=== PATIENT | male | born 1990 | race American Indian/Alaskan Native ===

== ENCOUNTER 2019-05-27 09:47 | Emergency (ER) | payer OTHER ==
[2019-05-27 09:55] VITALS: BP 146/94
--- NOTE | 2019-05-27 11:30 | Emergency Department Report ---
ED General Adult HPI - General Chief complaint: Extremity Injury, Lower Stated complaint: RT LEG PAIN Time Seen by Provider: 05/27/19 10:35 Source: patient Mode of arrival: Ambulatory Limitations: No Limitations - History of Present Illness Initial comments: 28-year-old male presents with right knee pain 1 week. Patient states about a week ago he accidentally slild sledgehammer onto his knee. Patient states that he had a mild abrasion from an injury about a week ago which is not resolved. Patient states intermittently he gets knee pain. He denies swelling to the knee, difficult to walking Radiation: non-radiation Severity scale (0 -10): 5 Quality: aching Consistency: constant Improves with: none Worsens with: none Associated Symptoms: denies other symptoms Treatments Prior to Arrival: none - Related Data Previous Rx's Medication Instructions Recorded Last Taken Type Cyclobenzaprine [Flexeril] 10 mg PO QHS PRN #10 tablet 05/27/19 Unknown Rx Ibuprofen [Motrin] 600 mg PO Q8H PRN #30 tablet 05/27/19 Unknown Rx Allergies Allergy/AdvReac Type Severity Reaction Status Date / Time No Known Allergies Allergy Unverified 05/27/19 09:50 ED Review of Systems ROS: Stated complaint: RT LEG PAIN Other details as noted in HPI Comment: All other systems reviewed and negative ED Past Medical Hx - Past Medical History Previous Medical History?: No - Surgical History Past Surgical History?: No - Social History Smoking Status: Never Smoker Substance Use Type: None - Medications Home Medications: Home Medications Medication Instructions Recorded Confirmed Last Taken Type Cyclobenzaprine [Flexeril] 10 mg PO QHS PRN #10 tablet 05/27/19 Unknown Rx Ibuprofen [Motrin] 600 mg PO Q8H PRN #30 tablet 05/27/19 Unknown Rx ED Physical Exam - General Limitations: No Limitations General appearance: alert, in no apparent distress - Head Head exam: Present: atraumatic, normocephalic - Eye Eye exam: Present: normal appearance - ENT ENT exam: Present: mucous membranes moist - Neck Neck exam: Present: normal inspection - Respiratory Respiratory exam: Present: normal lung sounds bilaterally. Absent: respiratory distress - Cardiovascular Cardiovascular Exam: Present: regular rate, normal rhythm. Absent: systolic murmur, diastolic murmur, rubs, gallop - GI/Abdominal GI/Abdominal exam: Present: soft, normal bowel sounds - Rectal Rectal exam: Present: deferred - Extremities Exam Extremities exam: Present: normal inspection, full ROM, normal capillary refill. Absent: tenderness, joint swelling, calf tenderness - Back Exam Back exam: Present: normal inspection - Neurological Exam Neurological exam: Present: alert, oriented X3 - Psychiatric Psychiatric exam: Present: normal affect, normal mood - Skin Skin exam: Present: warm, dry, intact, normal color. Absent: rash ED Course Vital Signs 05/27/19 05/27/19 09:54 10:24 Temperature 98.3 F 98.3 F Pulse Rate 90 90 Respiratory 18 18 Rate Blood Pressure 146/94 Blood Pressure 146/94 [Right] O2 Sat by Pulse 100 100 Oximetry ED Medical Decision Making - Medical Decision Making 28-year-old male presents with knee pain for the past one week. Abrasion is healed, noninfected. Patient is able to ambulate his knee without any problems. Right knee shows no swelling redness or injury. Discussed with patient to avoid shyness activities for the next couple of days. Discussed heat application 3 times a day. Vital signs are normal patient is in no acute distress. Critical care attestation.: If time is entered above; I have spent that time in minutes in the direct care of this critically ill patient, excluding procedure time. ED Disposition Clinical Impression: Right knee pain Disposition: DC-01 TO HOME OR SELFCARE Is pt being admited?: No Does the pt Need Aspirin: No Condition: Stable Instructions: Arthralgia (ED) Additional Instructions: Make sure to follow up with the primary care physician as discussed. Take all your medications as you've been prescribed. If you have any worsening symptoms or develop new symptoms please return to ED immediately. Prescriptions: Cyclobenzaprine [Flexeril] 10 mg PO QHS PRN #10 tablet PRN Reason: Muscle Spasm Ibuprofen [Motrin] 600 mg PO Q8H PRN #30 tablet PRN Reason: Pain Referrals: PRIMARY CARE,MD [Primary Care Provider] - 3-5 Days [facility] [Outside] - 3-5 Days [facility] [Outside] - 3-5 Days Forms: Work/School Release Form(ED) Time of Disposition: 11:34
== END 2019-05-27 11:46 | disposition home or self-care (01) ==
LOC: ED 09:47
DX: M25.561 Pain in right knee (principal)
CPT/HCPCS: 99282

== ENCOUNTER 2019-06-17 18:24 | Emergency (ER) | payer OTHER ==
[2019-06-17 19:25] VITALS: BP 151/92
--- NOTE | 2019-06-17 19:25 | Emergency Department Report ---
Blank Doc - Documentation Documentation: 28-year-old male that presents with several boils. This initial assessment/diagnostic orders/clinical plan/treatment(s) is/are subject to change based on patient's health status, clinical progression and re- assessment by fellow clinical providers in the ED. Further treatment and workup at subsequent clinical providers discretion. Patient/guardians urged not to elope from the ED as their condition may be serious if not clinically assessed and managed. Initial orders include: 1- Patient sent to [facility] for further evaluation and treatment 2- I/D
--- NOTE | 2019-06-17 22:43 | Emergency Department Report ---
ED General Adult HPI - General Chief complaint: Skin/Abscess/Foreign Body Stated complaint: RT SIDE FACE/BACK BOIL PAIN Time Seen by Provider: 06/17/19 19:25 Source: patient Mode of arrival: Ambulatory Limitations: No Limitations - History of Present Illness Initial comments: Patient is a 28-year-old [place] male who over the last 3-4 days has develops some lesions on the face and groin and. Patient has some swelling to the right jaw and 3 distinct areas on her groin is swollen. There is mild pain with palpation. Patient states is throbbing sensation is 6 out of 10 in severity. Denies any fevers chills nausea vomiting. - Related Data Previous Rx's Medication Instructions Recorded Last Taken Type Cyclobenzaprine [Flexeril] 10 mg PO QHS PRN #10 tablet 05/27/19 Unknown Rx Ibuprofen [Motrin] 600 mg PO Q8H PRN #30 tablet 05/27/19 Unknown Rx Clindamycin [Clindamycin CAP] 300 mg PO Q8H #21 cap 06/17/19 Unknown Rx Ibuprofen [Motrin 800 MG tab] 800 mg PO Q8HR PRN #10 tablet 06/17/19 Unknown Rx Mupirocin [Bactroban 2%] 1 applic NS BID #1 tube 06/17/19 Unknown Rx Allergies Allergy/AdvReac Type Severity Reaction Status Date / Time No Known Allergies Allergy Unverified 05/27/19 09:50 ED Review of Systems ROS: Stated complaint: RT SIDE FACE/BACK BOIL PAIN Other details as noted in HPI Comment: All other systems reviewed and negative ED Past Medical Hx - Past Medical History Previous Medical History?: No - Surgical History Past Surgical History?: No - Social History Smoking Status: Current Some Day Smoker - Medications Home Medications: Home Medications Medication Instructions Recorded Confirmed Last Taken Type Cyclobenzaprine [Flexeril] 10 mg PO QHS PRN #10 tablet 05/27/19 Unknown Rx Ibuprofen [Motrin] 600 mg PO Q8H PRN #30 tablet 05/27/19 Unknown Rx Clindamycin [Clindamycin CAP] 300 mg PO Q8H #21 cap 06/17/19 Unknown Rx Ibuprofen [Motrin 800 MG tab] 800 mg PO Q8HR PRN #10 tablet 06/17/19 Unknown Rx Mupirocin [Bactroban 2%] 1 applic NS BID #1 tube 06/17/19 Unknown Rx ED Physical Exam - General Limitations: No Limitations General appearance: alert, in no apparent distress - Head Head exam: Present: atraumatic, normocephalic, other (patient with a small area of folliculitis at the angle of the right jaw) - Eye Eye exam: Present: normal appearance - ENT ENT exam: Present: mucous membranes moist - Respiratory Respiratory exam: Absent: respiratory distress - GI/Abdominal GI/Abdominal exam: Absent: distended, tenderness - exam: Present: other (2 small areas of folliculitis to the groin) ED Course Vital Signs 06/17/19 18:29 Temperature 98.3 F Pulse Rate 102 H Respiratory 18 Rate Blood Pressure 151/92 O2 Sat by Pulse 99 Oximetry ED Medical Decision Making - Medical Decision Making Because of the location of the patient's symptoms and the very areas that he's affected patient likely has colony of MRSA. Patient be started on clindamycin and can continue with warm compresses. Patient also given Bactroban as a nasal ointment Critical care attestation.: If time is entered above; I have spent that time in minutes in the direct care of this critically ill patient, excluding procedure time. ED Disposition Clinical Impression: Folliculitis, MRSA (methicillin resistant Staphylococcus aureus) Disposition: DC-01 TO HOME OR SELFCARE Is pt being admited?: No Does the pt Need Aspirin: No Condition: Stable Instructions: Folliculitis (ED), Methicillin Resistant Staphylococcus Aureus (ED) Referrals: NHI HANSON MD [Referring] - 3-5 Days Time of Disposition: 22:41
== END 2019-06-17 23:03 | disposition home or self-care (01) ==
LOC: ED 18:24
DX: A49.02 Methicillin resistant Staphylococcus aureus infection, unspecified site (principal); L73.9 Follicular disorder, unspecified; F17.200 Nicotine dependence, unspecified, uncomplicated; Z79.899 Other long term (current) drug therapy

== ENCOUNTER 2020-05-28 13:04 | Emergency (ER) | payer SELFPAY ==
[2020-05-28 13:12] VITALS: BP 125/83
--- NOTE | 2020-05-28 14:07 | Emergency Department Report ---
ED ENT HPI - General Chief complaint: Earache Stated complaint: LT EAR PAIN Time Seen by Provider: 05/28/20 13:57 Source: patient Mode of arrival: Ambulatory Limitations: No Limitations - History of Present Illness MD complaint: ear pain -: days(s) Location: L ear Severity: mild, moderate Quality: dull Consistency: constant Improves with: none Worsens with: none Associated Symptoms: denies: cough, gum swelling, toothache, pain with swallowing, sore throat, tinnitus, hearing loss, other (ear pain) - Related Data Previous Rx's Medication Instructions Recorded Last Taken Type Cyclobenzaprine [Flexeril] 10 mg PO QHS PRN #10 tablet 05/27/19 Unknown Rx Ibuprofen [Motrin] 600 mg PO Q8H PRN #30 tablet 05/27/19 Unknown Rx Clindamycin [Clindamycin CAP] 300 mg PO Q8H #21 cap 06/17/19 Unknown Rx Ibuprofen [Motrin 800 MG tab] 800 mg PO Q8HR PRN #10 tablet 06/17/19 Unknown Rx Mupirocin [Bactroban 2%] 1 applic NS BID #1 tube 06/17/19 Unknown Rx Neomy/Polymyx B/Hc (Otic) Soln 4 drops OT TID #1 bottle 05/28/20 Unknown Rx [Cortisporin (Otic) Soln] Allergies Allergy/AdvReac Type Severity Reaction Status Date / Time No Known Allergies Allergy Unverified 05/27/19 09:50 ED Dental HPI - General Chief complaint: Earache Stated complaint: LT EAR PAIN Time Seen by Provider: 05/28/20 13:57 Source: patient Mode of arrival: Ambulatory Limitations: No Limitations - Related Data Previous Rx's Medication Instructions Recorded Last Taken Type Cyclobenzaprine [Flexeril] 10 mg PO QHS PRN #10 tablet 05/27/19 Unknown Rx Ibuprofen [Motrin] 600 mg PO Q8H PRN #30 tablet 05/27/19 Unknown Rx Clindamycin [Clindamycin CAP] 300 mg PO Q8H #21 cap 06/17/19 Unknown Rx Ibuprofen [Motrin 800 MG tab] 800 mg PO Q8HR PRN #10 tablet 06/17/19 Unknown Rx Mupirocin [Bactroban 2%] 1 applic NS BID #1 tube 06/17/19 Unknown Rx Neomy/Polymyx B/Hc (Otic) Soln 4 drops OT TID #1 bottle 05/28/20 Unknown Rx [Cortisporin (Otic) Soln] Allergies Allergy/AdvReac Type Severity Reaction Status Date / Time No Known Allergies Allergy Unverified 05/27/19 09:50 ED Review of Systems ROS: Stated complaint: LT EAR PAIN Other details as noted in HPI Comment: All other systems reviewed and negative ED Past Medical Hx - Past Medical History Previous Medical History?: No - Surgical History Past Surgical History?: No - Social History Smoking Status: Current Every Day Smoker Substance Use Type: None - Medications Home Medications: Home Medications Medication Instructions Recorded Confirmed Last Taken Type Cyclobenzaprine [Flexeril] 10 mg PO QHS PRN #10 tablet 05/27/19 Unknown Rx Ibuprofen [Motrin] 600 mg PO Q8H PRN #30 tablet 05/27/19 Unknown Rx Clindamycin [Clindamycin CAP] 300 mg PO Q8H #21 cap 06/17/19 Unknown Rx Ibuprofen [Motrin 800 MG tab] 800 mg PO Q8HR PRN #10 tablet 06/17/19 Unknown Rx Mupirocin [Bactroban 2%] 1 applic NS BID #1 tube 06/17/19 Unknown Rx Neomy/Polymyx B/Hc (Otic) Soln 4 drops OT TID #1 bottle 05/28/20 Unknown Rx [Cortisporin (Otic) Soln] ED Physical Exam - General Limitations: No Limitations General appearance: alert, in no apparent distress - Head Head exam: Present: atraumatic, normocephalic - Eye Eye exam: Present: normal appearance, PERRL, EOMI - ENT ENT exam: Present: mucous membranes moist, TM's normal bilaterally (tragal tenderness. canal erythema. no exudate. ), other - Neck Neck exam: Present: normal inspection, full ROM - Respiratory Respiratory exam: Present: normal lung sounds bilaterally. Absent: respiratory distress - Cardiovascular Cardiovascular Exam: Present: regular rate, normal rhythm. Absent: systolic murmur, diastolic murmur, rubs, gallop - GI/Abdominal GI/Abdominal exam: Present: soft, normal bowel sounds - Rectal Rectal exam: Present: deferred - Extremities Exam Extremities exam: Present: normal inspection - Back Exam Back exam: Present: normal inspection - Neurological Exam Neurological exam: Present: alert, oriented X3 - Psychiatric Psychiatric exam: Present: normal affect, normal mood - Skin Skin exam: Present: warm, dry, intact, normal color. Absent: rash ED Course Vital Signs 05/28/20 13:08 Temperature 98.5 F Pulse Rate 64 Respiratory 16 Rate Blood Pressure 125/83 O2 Sat by Pulse 98 Oximetry Critical care attestation.: If time is entered above; I have spent that time in minutes in the direct care of this critically ill patient, excluding procedure time. ED Disposition Clinical Impression: Otitis externa Disposition: DC- TO HOME OR SELFCARE Is pt being admited?: No Does the pt Need Aspirin: No Condition: Stable Instructions: Otitis Externa (ED) Prescriptions: Neomy/Polymyx B/Hc (Otic) Soln [Cortisporin (Otic) Soln] 4 drops OT TID #1 bottle Referrals: [facility] [Provider Group] - 3-5 Days
== END 2020-05-28 14:20 | disposition home or self-care (01) ==
LOC: ED 13:04
DX: H60.92 Unspecified otitis externa, left ear (principal); F17.200 Nicotine dependence, unspecified, uncomplicated; Z79.899 Other long term (current) drug therapy
CPT/HCPCS: 99282